=== PATIENT | female | born 2005 | race African-American/Black ===

== ENCOUNTER 2024-12-10 18:54 | Emergency (ER) | payer SELFPAY ==
[~2024-12-10] VITALS: Ht 165.1 cm; Wt 73.0 kg
[2024-12-10 18:59] VITALS: BP 144/82; PULSE 80; RESP 18; TEMP 98.6; O2SAT 100
[2024-12-10] MEDS ORDERED: IBUP-2029 MT (19:57)
[2024-12-10] MEDS: IBUPROFEN 600MG TABLET PO ONE (20:36)
== END 2024-12-10 20:36 | disposition home or self-care (01) ==
LOC: ER 18:54
DX: S50.02XA Contusion of left elbow, initial encounter (principal); M79.662 Pain in left lower leg; V49.49XA Driver injured in collision with other motor vehicles in traffic accident, initial encounter; Y93.89 Activity, other specified; Y92.89 Other specified places as the place of occurrence of the external cause; Y99.8 Other external cause status
CPT/HCPCS: 73070; 73560; 73590; 99284